=== PATIENT | female | born 2000 | race Caucasian/White ===

== ENCOUNTER 2023-02-08 04:20 | Emergency (ER) | payer MEDICAID ==
[~2023-02-08] VITALS: Ht 170.2 cm; Wt 74.8 kg
[2023-02-08 04:27] VITALS: BP 117/80
--- NOTE | 2023-02-08 04:33 | NUR ---
TO BED 5 FOLLOWING TRIAGE, AFTER OBTAINING UA
--- NOTE | 2023-02-08 05:00 | NUR ---
Dr. Vaughan examining patient.
[2023-02-08] MEDS ORDERED: NACL 0.9% 1,000 ML IV ONE (05:05)
[2023-02-08] MEDS ORDERED: ONDANSETRON 4 MG/2 ML VIAL IVP ONE (05:05)
[2023-02-08] MEDS ORDERED: MORPHINE SULFATE 4 MG/ML SYR IVP ONE ×2 (05:05→06:20)
[2023-02-08] MEDS ORDERED: MORPHINE SULFATE 4 MG/ML SYR ONE (05:11)
--- NOTE | 2023-02-08 05:57 | NUR ---
LABS TAKEN TO LAB, I ASKED CLS WHERE CAN I PLACE LABS. CLS POINTED AT [facility].
[2023-02-08] MEDS ORDERED: PIPERACILLIN/TAZOBACTAM 3.375 GM in DEXTROSE 5% 50 ML IV ONE (06:25)
--- NOTE | 2023-02-08 06:30 | NUR ---
Nasal swab sent to lab.
[2023-02-08] MEDS ORDERED: PIPERACILLIN/TAZOBACTAM 3.375 GM VIAL IV ONE (06:35)
[2023-02-08 06:58] LABS: BASOPHILS # (AUTO) 0.1 K/uL (0.00-0.22); BASOPHILS % (AUTO) 0.6 % (0.0-2.0); EOSINOPHILS # (AUTO) 0.2 K/uL (0-0.4); EOSINOPHILS % (AUTO) 1.7 % (0.0-4.0); HEMATOCRIT 38.5 % (36-48); HEMOGLOBIN 12.7 g/dL (12.0-16.0); LYMPHOCYTES % (AUTO) 33.2 % (20.5-51.1); MEAN CORPUSCULAR HEMOGLOBIN 28 pg (27-31); MEAN CORPUSCULAR HGB CONC 33 g/dL (33-37); MEAN CORPUSCULAR VOLUME 85.6 fL (80-94); MONOCYTES # (AUTO) 0.6 K/uL (0.8-1.0); MONOCYTES % (AUTO) 5.2 % (1.7-9.3); NEUTROPHILS # (AUTO) 7.1 K/uL (1.8-7.7); NEUTROPHILS % (AUTO) 59.3 % (42.2-75.2); PLATELET COUNT (AUTO) 329 K/uL (140-450); RED BLOOD CELL COUNT(AUTO) 4.49 MIL/uL (4.20-5.40); RED CELL DISTRIBUTION WIDTH 13.5 % (11.6-13.7)
--- NOTE | 2023-02-08 06:59 | NUR ---
UA collected and sent to lab
[2023-02-08 07:04] LABS: ALBUMIN 3.7 g/dL (3.4-5.0); ANION GAP 13.7 (8-16); CARBON DIOXIDE 25.2 mmol/L (21-32); CREATININE 0.8 mg/dL (0.6-1.3); POTASSIUM 3.9 mmol/L (3.5-5.1); TOTAL BILIRUBIN 0.2 mg/dL (0.0-1.0)
[2023-02-08 07:07] LABS: APPEARANCE,URINE CLEAR (CLEAR); BILIRUBIN,URINE NEGATIVE (NEGATIVE); BLOOD, URINE 1+ (NEGATIVE); COLOR,URINE YELLOW (YELLOW); LEUKOCYTE ESTERASE ,URINE NEGATIVE (NEGATIVE); NITRITE, URINE NEGATIVE (NEGATIVE); UGLUCOSE NEGATIVE (NEGATIVE)
--- NOTE | 2023-02-08 07:08 | NUR ---
PT TAKEN TO CT
--- NOTE | 2023-02-08 07:15 | NUR ---
ASSUMED CARE OF THE PT. PT RESTING IN BED WITHOUT DISTRESS. FAMILY AT BS WITH PT. IVPB INFUSING. LAB AT THE BS DRAWING PT'S BLOOD CXR, LA, LIPASE, & HCG. PENDING CT-SCAN RESULTS.
--- NOTE | 2023-02-08 07:20 | NUR ---
Pt report given to Yulia LOZANO. Transfer of care at this time.
[2023-02-08] MEDS ORDERED: ACET-8905 PO (08:46)
--- NOTE | 2023-02-08 08:57 | NUR ---
Patient discharged with v/s stable. Written and verbal after care instructions given and explained to both pt and her mother. Patient alert, oriented and verbalized understanding of instructions. Ambulatory with to car. All questions addressed prior to discharge. ID band removed. Patient advised to follow up with PMD. Rx of hydrocodone/acetaminophen given. Patient educated on indication of medication including possible reaction and side effects. Opportunity to ask questions provided and answered. Pt instructed to return if condition worsen.
[2023-02-08 09:02] VITALS: BP 100/54
== END 2023-02-08 08:57 | disposition home or self-care (01) ==
LOC: MED 04:20
DX: R10.9 Unspecified abdominal pain (principal); Z90.49 Acquired absence of other specified parts of digestive tract; Z79.899 Other long term (current) drug therapy; Z20.822 Contact with and (suspected) exposure to COVID-19
CPT/HCPCS: 36415; 74176; 76705; 80053; 81001; 81025; 82150; 83605; 83690; 84703; 85025; 87040; 87426; 96361; 96365; 96375; 96376; 99285; J2270; J2405; J2543; J7030; Q0092